=== PATIENT | female | born 1995 | race Caucasian/White ===

== ENCOUNTER 2023-12-28 01:42 | Day surgery (SDC) | payer BC, OTHER ==
[2023-12-28 02:13] VITALS: BMI 29.2
== END 2023-12-28 03:30 | disposition home or self-care (01) ==
LOC: CSHLD/OP 01:42
PROVIDERS: ATTEND Obstetrics & Gynecology
DX: O99.891 Other specified diseases and conditions complicating pregnancy (principal); R10.9 Unspecified abdominal pain; R11.0 Nausea; Z3A.24 24 weeks gestation of pregnancy; Z79.899 Other long term (current) drug therapy
CPT/HCPCS: 99282